=== PATIENT | female | born 1995 | race Caucasian/White ===

== ENCOUNTER 2019-02-17 14:28 | Emergency (ER) | payer BC, OTHER, SELFPAY ==
[2019-02-17 14:41] VITALS: BP 145/84; PULSE 84; RESP 16; TEMP 36.8; O2SAT 97; BMI 20.9
--- NOTE | 2019-02-17 15:04 | ED_ITS ---
HPI - Female Genitourinary General: Chief complaint: Urogenital-Female Stated complaint: Prior surgery issue Time Seen by Provider: 02/17/19 14:51 Source: patient and family Mode of arrival: ambulatory Limitations: no limitations History of Present Illness: HPI Narrative: Patient is a 24-year-old female who presents to ED today with her significant other for concerns of vaginal bleeding following a colposcopy that was performed by Dr. Mirza on ; patient reports very scant bleeding on Monday and Monday following the procedure but became concerned today when she woke up and reports that she had soaked a pad and in addition had a golf ball sized clot. MD elicited complaint: vaginal bleeding Pertinent past history: other (recent cervical biopsy) Vaginal discharge: none Vaginal bleeding: moderate and clots Exacerbating factors: none Relieving factors: none Associated symptoms: Reports no associated symptoms and vaginal bleeding (mild amount of blood in vaginal canal ); Deny abdominal pain, nausea or vaginal discharge Treatment prior to arrival: none Patient : No Date of Last Menstrual Period: 02/11/19 Review of Systems GI: Denies: abdominal pain, nausea or vomiting : Reports: vaginal bleeding; Denies: difficulty urinating, painful urination, urinary frequency, urinary urgency, urinary hesitancy, vaginal odor, vaginal discharge or pelvic pain PFSH ED PFSH: Statuses (acute, chronic, etc) shown below reflect problem list status as previously entered and may not be historically accurate Social History Smoking and tobacco status: current every day smoker Female Reproductive History: Date of last menstrual period: 02/11/19 Physical Exam Const: COMMON NORMALS: no apparent distress, average body habitus, oriented x3, healthy appearing, alert and well nourished GI: COMMON NORMALS: normal to inspection, nondistended, normoactive bowel sounds, soft to palpation and non-tender PALPATION: Yes soft : SPECULUM EXAM - VAGINA: Yes vaginal bleeding (mild amount of blood in vaginal canal ) and Yes tissue present in vagina (small clot present ) SPECULUM EXAM - CERVIX: Yes cervical os closed and Yes other (two small cervical biopsy sights were directly visualized; no obvious bleed) OB/EXTERNAL & SPECULUM: tissue present in vagina (small clot present ) and vaginal bleeding (mild amount of blood in vaginal canal ) Neuro: COMMON NORMALS: oriented x3 SENSORIUM/ORIENTATION: Yes alert Course Vital Signs: Vital signs: Vital Signs Temperature 98.2 F 02/17/19 14:41 Pulse Rate 78 02/17/19 15:48 Respiratory Rate 18 02/17/19 15:48 Blood Pressure 128/72 02/17/19 15:48 Pulse Oximetry 96 02/17/19 15:48 MDM - Female MDM Narrative: Medical decision making narrative: pts bleeding seems to be minimal at this point; she has only soaked one pad since bleeding began; biopsy sights were directly visualized with no obvious bleeding; pt is stable to follow up with Dr. Mirza next week for continued bleeding; return to ED precautions given Discharge Plan Discharge Patient Disposition: Home, Self-Care Clinical Impression: Status post colposcopy Condition: Stable Prescriptions: No Action Isibloom 0.15-0.03 mg tablet 1 tab PO DAILY RF: 0 fluoxetine 20 mg capsule 20 mg PO DAILY RF: 0 Discharge Orders: Discharge Order (Routine); Ordered 02/17/19 Ordered By: Whit Chin Referrals: Diana Cox DO [Primary Care Provider] - Discharge Diet: Usual diet Discharge Activity: Increase activity as tolerated Activity Restrictions/Additional Instructions: Follow up with Dr. Mirza in 48 hours if bleeding persists. Return to ED for bleeding soaking more than a pad every 1-2 hours or increased pain. Discharge Date/Time: 02/17/19 15:54 Coding Level of Care Code ED Home Extension Agent for Rogerio Madrid Exam Problem Focused
[2019-02-17 15:36] VITALS: BP 128/72; PULSE 85; RESP 16; O2SAT 100
[2019-02-17 15:48] VITALS: BP 128/72; PULSE 78; RESP 18; O2SAT 96
== END 2019-02-17 15:54 | disposition home or self-care (01) ==
PROVIDERS: Emergency Provider Physician Assistant; Family Provider Family Medicine; PCP Family Medicine
DX: Z98.890 Other specified postprocedural states (principal); F17.210 Nicotine dependence, cigarettes, uncomplicated
CPT/HCPCS: 99281; E0352

== ENCOUNTER 2022-04-18 14:17 | Outpatient (CLI) | payer BC, SELFPAY ==
--- NOTE | 2022-04-18 14:30 | US_ITS ---
WS: [id number] TRANSABDOMINAL PELVIC AND TRANSVAGINAL PELVIC ULTRASOUND HISTORY: PELVIC PAIN IN FEMALE COMPARISON: None available. Uterus: 6.9 cm x 3.5 cm x 2.9 cm. Normal size anteverted uterus. Prominent peripheral varicosities. N o mass Endometrium: 0.2 cm. Normal. No mass. Right ovary: 2.8 cm x 2.8 cm x 1.1 cm. Normal size. No solid mass. Normal vascularity. Left ovary: 2.1 cm x 0.8 cm x 2.7 cm. Normal size. No solid mass. Normal vascularity. Free fluid: No free fluid. US/US pelv w/transvag [id number] IMPRESSION: Normal pelvic ultrasound.
== END 2022-04-18 14:18 | disposition home or self-care (01) ==
PROVIDERS: PCP Family Medicine; Visit Provider Nurse Practitioner Family
DX: R10.2 Pelvic and perineal pain (principal)
CPT/HCPCS: 76830; 76856